=== PATIENT | female | born 1965 | race Caucasian/White ===

== ENCOUNTER 2018-07-18 07:51 | Day surgery (SDC) | payer BC ==
[2018-07-11 15:46] VITALS: BMI 24.0
--- NOTE | 2018-07-18 08:04 | HP ---
History & Physical Update - History History: No Change - Physical Physical: No Change - Assessment Assessment: No Change - Plan Plan: No Change
[2018-07-18] MEDS ORDERED: oxyCODONE HCL 10 MG SUSTAINED ACTING TABLET PO STA (08:10)
[2018-07-18] MEDS ORDERED: MIDAZOLAM HCL 2 MG/2 ML SINGLE DOSE VIAL ONE ×3 (10:55→12:06)
[2018-07-18] MEDS ORDERED: DEXAMETHASONE SOD PHOSPHATE/PF 10 MG/ML SDV ONE (10:55)
[2018-07-18] MEDS ORDERED: BUPIVACAINE HCL/PF (5 MG/ML) 30 ML VIAL IJ ONE (10:55)
[2018-07-18] MEDS ORDERED: oxyCODONE HCL 5 MG TABLET PO PRN (10:57)
[2018-07-18] MEDS ORDERED: ONDANSETRON 4 MG/2 ML VIAL IVPUSH PRN (10:57)
[2018-07-18] MEDS ORDERED: LACTATED RINGERS SOLUTION 1,000 ML IV SCH (11:00)
[2018-07-18] MEDS ORDERED: methylPREDNISolone ACET (DEPO) 40 MG/1 ML VIAL ONE (11:10)
[2018-07-18] MEDS ORDERED: THROMBIN (RECOMBINANT) 5,000 UNIT VIAL TP ONE (11:10)
[2018-07-18] MEDS ORDERED: LIDOCAINE 1%/EPI 1:100000 (20 ML MULTI DOSE VIAL) ONE (11:10)
[2018-07-18] MEDS ORDERED: BUPIVACAINE HCL/PF 0.5% (5MG/ML) 10 ML VIAL ONE (11:30)
[2018-07-18] MEDS ORDERED: BUPIVACAINE HCL/PF 2.5 MG/ML - 30 ML VIAL IJ ONE (11:41)
[2018-07-18] MEDS ORDERED: ONDANSETRON 4 MG/2 ML VIAL ONE ×2 (11:48→14:06)
[2018-07-18] MEDS ORDERED: ceFAZolin SODIUM 1 GM VIAL ONE (11:53)
[2018-07-18] MEDS ORDERED: LIDOCAINE 1%/EPI 1:100000 (50 ML MULTI DOSE VIAL) INF ONE (11:55)
[2018-07-18] MEDS ORDERED: DEXMEDETOMIDINE HCL 200 MCG/2 ML ML IVPB ONE (11:56)
[2018-07-18] MEDS ORDERED: THROMBIN (BOVINE) 5,000 UNIT VIAL TP ONE (12:12)
[2018-07-18] MEDS ORDERED: GELATIN SPONGE,ABSORBABLE 1 GM PACKET TP ONE (12:12)
[2018-07-18] MEDS ORDERED: methylPREDNISolone ACET (DEPO) 40 MG/1 ML VIAL IM ONE ×2 (12:20→12:32)
[2018-07-18] MEDS ORDERED: BUPIVACAINE HCL/PF 0.25% (2.5MG/ML) 10 ML VIAL IJ ONE ×2 (12:22→12:30)
--- NOTE | 2018-07-18 13:09 | OP ---
Operative Note - Note: Operative Date: 07/18/18 Pre-Operative Diagnosis: Lumbosacral stenosis with radiculopathy Operation: L5/S1 bilateral laminectomy Post-Operative Diagnosis: Same as Pre-op Surgeon: Jericho Cantu Greeter: Patrick Morales Anesthesiologist/ECONOMICS DEPARTMENT CHAIR: Maureen Peck Anesthesia: Spinal Estimated Blood Loss (mls): 20 Fluid Volume Replaced (mls): 900 Operative Report Dictated: Yes
--- NOTE | 2018-07-18 13:10 | SURG ---
Surgery Tube Wrapper Note Tube Wrapper: Patrick Morales PA-C Date of Service: 07/18/18 Diagnosis: L5/S1 stenosis with radiculopathy Procedure: L5/S1 bilateral laminectomy I was present for the entirety of the operative procedure. For further detail, please refer to operative report. Visit type - Case Type Case Type: Scheduled - New patient This patient is new to me today: Yes Date on this admission: 07/18/18
[2018-07-18] MEDS ORDERED: diazePAM 2 MG TABLET PO PRN (13:11)
[2018-07-18] MEDS ORDERED: oxyCODONE HCL 5 MG TABLET ONE (15:32)
[2018-07-18] MEDS ORDERED: diazePAM 2 MG TABLET ONE (15:33)
[2018-07-18 16:18] VITALS: TEMP 98.3
[2018-07-18 17:28] VITALS: BP 110/72; PULSE 73
--- NOTE | 2018-07-19 09:16 | OP ---
DATE OF OPERATION: 07/18/2018 PREOPERATIVE DIAGNOSIS: Spinal stenosis at L5-S1. POSTOPERATIVE DIAGNOSIS: Spinal stenosis at L5-S1. PROCEDURE PERFORMED: Laminectomy, L5-S1. SURGEON: Jericho Cantu MD DOG HANDLER: LION Hinds ESTIMATED BLOOD LOSS: 50 mL INTRAVENOUS FLUIDS: Per Anesthesia. ANESTHESIA: Spinal/TLIP. COMPLICATIONS: None. DISPOSITION: Patient brought to the PACU in stable condition. INDICATIONS FOR SURGERY: The patient is a 53-year-old female who has been suffering from pain from her back down her leg. X-rays and MRI were completed which noted that she had spinal stenosis at L5-S1. She had gone through an exhaustive course of treatment for this, which included medications, physical therapy as well as injections. Unfortunately, her pain continued to persist despite all this. At this point, risks, benefits, and alternatives were discussed, and the patient consented to surgery. DESCRIPTION OF PROCEDURE: Patient was brought to the operating room by the anesthesia staff. After appropriate patient identification was performed, spinal anesthesia was given along with a TLIP block. Patient was able to position herself prone onto the OR table. She was able to avoid all bony prominences. Two needles were placed into her back to greg off the L5-S1 segment. X-ray was taken to confirm this as correct. Powderly were removed, and 10 mL of lidocaine with epinephrine were injected in her back at this time. Her back was prepped and draped in a sterile manner. At this point, a timeout was completed. An incision was made from the top of L5 down to the bottom of S1. Dissection was carried down to the fascia. Fascia was split open at this time, and appropriate retractor was then placed in. A spinal needle was placed onto the L5 lamina. X-ray was taken to confirm this as L5-S1. Needle was removed. The interspinous ligament at L5-S1 was removed. Portions of L5-S1 were removed. Flavum was identified, was removed. A complete decompression was performed such that by the end of the procedure the S1 nerve root appeared to be well decompressed. All bleeding was well controlled at this time. Steroid was placed over the nerve root. FloSeal was placed over that. The fascia was closed with a No. 1 Vicryl suture. Subcutaneous tissues were closed with 2-0 Vicryl suture. Skin was closed with 3-0 Monocryl suture. Dermabond was applied. Steri-Strips were applied. A sterile dressing was applied. Patient was placed supine on the OR bed and brought to the PACU in stable condition. Shukri [id number]
== END 2018-07-18 17:00 | disposition home or self-care (01) ==
LOC: FASU 07:51
PROVIDERS: ATTEND Orthopaedic Surgery Orthopaedic Surgery of the Spine
PROC: 01NB0ZZ Release Lumbar Nerve, Open Approach (ICD-10-PCS; principal; 2018-07-18 12:05)
DX: M48.07 Spinal stenosis, lumbosacral region (principal)
CPT/HCPCS: 72100-TC-FY; 84703; 94760